=== PATIENT | female | born 2000 | race Caucasian/White ===

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

== ENCOUNTER → 2021-01-03 | Outpatient (CLI) | payer OTHER ==
[2021-01-05 03:11] LABS: CHLAMYDIA TRACHOMATIS, NAA Negative (Negative)
== END ==
LOC: LAB SHORT 08:20 → LAB 08:20
PROVIDERS: Registered Nurse Community Health
DX: Z34.91 Encounter for supervision of normal pregnancy, unspecified, first trimester (principal)
CPT/HCPCS: 87491; 87591

== ENCOUNTER → 2021-02-14 | Outpatient (CLI) | payer OTHER ==
[2021-02-14 13:46] LABS: Hematocrit 33.1 % (33.0-51.0); Hemoglobin 11.4 g/dL (11.5-16.0)
== END ==
LOC: LAB SHORT 09:26 → LAB 09:26
PROVIDERS: Registered Nurse Community Health
DX: Z33.1 Pregnant state, incidental (principal)
CPT/HCPCS: 82950; 85014; 85018

== ENCOUNTER → 2021-04-10 | Outpatient (CLI) | payer OTHER | LOC: LAB SHORT 09:00 | DX: Z34.91 Encounter for supervision of normal pregnancy, unspecified, first trimester (principal) | CPT/HCPCS: 87081; 87150 ==

== ENCOUNTER 2021-04-23 16:15 | Inpatient (IN) | payer OTHER ==
[~2021-04-23] VITALS: Ht 167.6 cm; Wt 86.1 kg
[2021-04-23 17:08] LABS: BASOPHILS ABSOLUTE AUTO 0.03 K/mm3 (0.00-0.23); BASOPHILS PERCENT AUTO 0 % (0-2); EOSINOPHILS ABSOLUTE AUTO 0.13 K/mm3 (0.00-0.68); EOSINOPHILS PERCENT AUTO 1 % (0-6); Hematocrit 34.1 % (33.0-51.0); Hemoglobin 11.8 g/dL (11.5-16.0); IMMATURE GRAN ABSOLUTE AUTO 0.04 K/mm3 (0.00-0.10); IMMATURE GRAN PERCENT AUTO 0 % (0-1); LYMPHOCYTES ABSOLUTE AUTO 1.34 K/mm3 (0.84-5.20); LYMPHOCYTES PERCENT AUTO 12 % (21-46); MONOCYTES ABSOLUTE AUTO 0.71 K/mm3 (0.16-1.47); MONOCYTES PERCENT AUTO 6 % (4-13); Mean Corpuscular HGB 33.1 pg (26.0-34.0); Mean Corpuscular HGB Conc 34.6 g/dL (31.5-36.5); Mean Corpuscular Volume 96 fL (80-100); Mean Platelet Volume 9.3 fL (9.1-12.4); NEUTROPHILS ABSOLUTE AUTO 9.02 K/mm3 (1.96-9.15); NEUTROPHILS PERCENT AUTO 80 % (41-73); Platelet Count 462 K/mm3 (150-400); RDW Coefficient Variation 13.2 % (11.7-14.2); RDW Standard Deviation 46.4 fL (35.1-46.3); Red Blood Cell Count 3.56 M/mm3 (3.80-5.20); White Blood Cell Count 11.27 K/mm3 (4.00-11.30)
[2021-04-23] MEDS ORDERED: PRENATAL TABLE1 EAC2 PO (17:23)
[2021-04-23 17:30] LABS: Influenza A, PCR NEGATIVE (NEGATIVE); Influenza B, PCR NEGATIVE (NEGATIVE); Resp Syncytial Virus, PCR NEGATIVE (NEGATIVE); SARS-Cov-2 (COVID-19) PCR, MMC NEGATIVE (NEGATIVE)
--- NOTE | 2021-04-24 23:43 | NUR ---
Patient walked to the bathroom assisted by nurse & Tech. Patient showered and returned to bed with no issues.
[2021-04-25 05:57] LABS: Hematocrit 33.7 % (33.0-51.0); Hemoglobin 11.5 g/dL (11.5-16.0); Mean Corpuscular HGB Conc 34.1 g/dL (31.5-36.5); Mean Corpuscular Volume 97 fL (80-100); Mean Platelet Volume 9.7 fL (9.1-12.4); Platelet Count 425 K/mm3 (150-400); RDW Coefficient Variation 13.2 % (11.7-14.2); RDW Standard Deviation 47.5 fL (35.1-46.3); Red Blood Cell Count 3.49 M/mm3 (3.80-5.20); White Blood Cell Count 17.59 K/mm3 (4.00-11.30)
--- NOTE | 2021-04-25 08:25 | NUR ---
MORNING MEDS GIVEN, ROBE/SLIPPER SOCKS GIVEN, M[facility]ALK [facility]
--- NOTE | 2021-04-25 10:15 | NUR ---
PT DECLINED TOWELS FOR SHOWERING, OR BED BEING CHANGED
--- NOTE | 2021-04-25 18:39 | NUR ---
PT BACK IN ROOM FROM VISITING BABY IN [facility],
--- NOTE | 2021-04-25 19:15 | NUR ---
rept to PM shift
--- NOTE | 2021-04-25 19:30 | NUR ---
PT REPORTS PAIN 7/10. SHE REPORTS THE PAIN IS IN HER LOWER BACK, CRAMPING, AND IN SUTURE AREA. SHE SAID HER LOWER BACK HURTS IN THE EPIDURAL AREA AND DESCRIBES IT SHE FELT LIKE SHE WAS "PUNCHED" THERE. WE DISCUSSED THAT THIS IS NORMAL. A HEATING PAD WAS STARTED ON HER LOWER BACK AND AN ICE DIAPER FOR HER PERINEAL AREA. SHE WAS ALSO GIVEN TORADOL. FUNDUS WNL. SHE WILL BE REASSESSED.
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
--- NOTE | 2021-04-26 05:00 | NUR ---
PT C/O COUGH THAT HAD JUST STARTED. SHE FELT SOB. PT USED INHALER. AUSCULTATED WHEEZING IN LOWER LEFT LOBE. THIRTY MIN AFTER INHALER ADMINISTRATION, WHEEZING WAS DECREASED AND PT REPORTS NO SOB AND RELIEF OF COUGH.
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
--- NOTE | 2021-04-27 09:20 | NUR ---
PROVIDER HERE TO REVIEW PYSCH EVALUATION FROM LAST NIGHT THAT WAS DONE VIA TELEHEALTH. A COPY OF THE PYSCH EVAL IS IN THE PT'S CHART VIA HARDCOPY. PT WAS IN THE NURSERY VISITING HER WHEN Sarwat POMPA CNM CAME ON THE UNIT, PROVIDER DID NOT WANT TO DISTURB PT'S TIME WITH HER SO SHE STATED THAT WE WILL COME BACK BY LATER TODAY TO SEE HER. PROVIDER REQUESTED THAT WE CALL CHILD SERVICES TODAY AND NOTIFY THEM OF CONCERNS REGARDING PT'S PSYCHOLOGICAL STATE AND HOW IT MAY AFFECT CARING FOR A .
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
[2021-04-28] MEDS ORDERED: IBUP800 PO (12:28)
== END 2021-04-28 13:00 | disposition home or self-care (01) | DRG 807 ==
LOC: OBS 16:15 → BC 16:21 → OBS 16:26 → BC 16:28
PROVIDERS: ADMIT Registered Nurse Community Health
PROC: 10E0XZZ Delivery of Products of Conception, External Approach (ICD-10-PCS; principal; 2021-04-24)
PROC: 10907ZC Drainage of Amniotic Fluid, Therapeutic from Products of Conception, Via Natural or Artificial Opening (ICD-10-PCS; 2021-04-24)
PROC: 0KQM0ZZ Repair Perineum Muscle, Open Approach (ICD-10-PCS; 2021-04-24)
PROC: 3E0R3BZ Introduction of Anesthetic Agent into Spinal Canal, Percutaneous Approach (ICD-10-PCS; 2021-04-24)
PROC: 00HU33Z Insertion of Infusion Device into Spinal Canal, Percutaneous Approach (ICD-10-PCS; 2021-04-24)
PROC: 3E02340 Introduction of Influenza Vaccine into Muscle, Percutaneous Approach (ICD-10-PCS; 2021-04-24)
DX: O36.5930 Maternal care for other known or suspected poor fetal growth, third trimester, not applicable or unspecified (principal); Z37.0 Single live birth; Z3A.38 38 weeks gestation of pregnancy; O70.1 Second degree perineal laceration during delivery; Z20.822 Contact with and (suspected) exposure to COVID-19; O99.52 Diseases of the respiratory system complicating childbirth; J45.909 Unspecified asthma, uncomplicated; O99.344 Other mental disorders complicating childbirth; F41.9 Anxiety disorder, unspecified; Z23 Encounter for immunization
CPT/HCPCS: 0241U; 36415; 51702; 85025; 85027; 86850; 86900; 86901; 90686; A9270; J1885; J2001; J2590; J3010; J7120

== ENCOUNTER 2021-10-05 03:32 | Emergency (ER) | payer OTHER ==
[~2021-10-05] VITALS: Ht 167.6 cm; Wt 79.4 kg
[~2021-10-05 03:32] MED LIST changes: +IBUP800 PO; +PRENATAL TABLE1 EAC2 PO
== END 2021-10-05 07:24 | disposition home or self-care (01) ==
LOC: ER 03:32
DX: U07.1 COVID-19 (principal); E66.9 Obesity, unspecified; F17.210 Nicotine dependence, cigarettes, uncomplicated
CPT/HCPCS: A9270

== ENCOUNTER 2021-11-30 06:02 | Emergency (ER) | payer OTHER ==
[~2021-11-30] VITALS: Ht 167.6 cm; Wt 81.7 kg
[2021-11-30] MEDS ORDERED: IBU800 M1 PO (06:27)
[2021-11-30] MEDS ORDERED: Ventolin/Prove6.7 GM INH (06:27)
[2021-11-30] MEDS ORDERED: CYCL10 PO (08:30)
== END 2021-11-30 08:39 | disposition home or self-care (01) ==
LOC: ER 06:02
DX: M79.18 Myalgia, other site (principal); J45.909 Unspecified asthma, uncomplicated; Z79.899 Other long term (current) drug therapy
CPT/HCPCS: A9270

== ENCOUNTER → 2023-01-16 | Outpatient (CLI) | payer OTHER ==
[~2023-01-16] MED LIST changes: +CYCL10 PO; +IBU800 M1 PO; +Ventolin/Prove6.7 GM INH
[2023-01-18 04:08] LABS: HBSAG SCREEN Negative (Negative); HCV ANTIBODY Non Reactive (Non Reactive)
[2023-01-19 00:08] LABS: HIV AB/P24 AG SCREEN Non Reactive (Non Reactive)
[2023-01-21 00:10] LABS: CHLAMYDIA BY NAA Negative (Negative); GONOCOCCUS BY NAA Negative (Negative); TRICH VAG BY NAA Negative (Negative)
== END ==
LOC: LAB 10:28 → LAB SHORT 10:28
PROVIDERS: Registered Nurse Community Health
DX: Z11.3 Encounter for screening for infections with a predominantly sexual mode of transmission (principal)
CPT/HCPCS: 86592; 86803; 87340; 87389; 87491; 87591; 87661

== ENCOUNTER 2023-03-31 17:33 | Emergency (ER) | payer OTHER ==
[~2023-03-31] VITALS: Ht 167.6 cm; Wt 79.4 kg
[2023-03-31 17:51] VITALS: BP 132/71
== END 2023-03-31 20:13 | disposition home or self-care (01) ==
LOC: ER 17:33
DX: G43.909 Migraine, unspecified, not intractable, without status migrainosus (principal); J45.909 Unspecified asthma, uncomplicated; F17.200 Nicotine dependence, unspecified, uncomplicated; Z79.899 Other long term (current) drug therapy
CPT/HCPCS: 96372; 99283-25; A9270; J1885

== ENCOUNTER → 2023-08-31 | Outpatient (CLI) | payer OTHER ==
[2023-08-31 14:32] LABS: BASOPHILS ABSOLUTE AUTO 0.02 K/mm3 (0.00-0.23); BASOPHILS PERCENT AUTO 0 % (0-2); EOSINOPHILS ABSOLUTE AUTO 0.29 K/mm3 (0.00-0.68); EOSINOPHILS PERCENT AUTO 4 % (0-6); Hematocrit 34.8 % (33.0-51.0); Hemoglobin 11.7 g/dL (11.5-16.0); IMMATURE GRAN ABSOLUTE AUTO 0.01 K/mm3 (0.00-0.10); IMMATURE GRAN PERCENT AUTO 0 % (0-1); LYMPHOCYTES ABSOLUTE AUTO 1.36 K/mm3 (0.84-5.20); LYMPHOCYTES PERCENT AUTO 18 % (21-46); MONOCYTES ABSOLUTE AUTO 0.59 K/mm3 (0.16-1.47); MONOCYTES PERCENT AUTO 8 % (4-13); Mean Corpuscular HGB 33.1 pg (26.0-34.0); Mean Corpuscular HGB Conc 33.6 g/dL (31.5-36.5); Mean Corpuscular Volume 99 fL (80-100); Mean Platelet Volume 9.2 fL (9.1-12.4); NEUTROPHILS ABSOLUTE AUTO 5.36 K/mm3 (1.96-9.15); NEUTROPHILS PERCENT AUTO 70 % (41-73); Platelet Count 485 K/mm3 (150-400); RDW Coefficient Variation 12.9 % (11.7-14.2); RDW Standard Deviation 46.2 fL (35.1-46.3); Red Blood Cell Count 3.53 M/mm3 (3.80-5.20); White Blood Cell Count 7.63 K/mm3 (4.00-11.30)
[2023-09-01 13:11] LABS: HEPATITIS C AB CIA INTERP Negative (Negative); HEPATITIS C ANTIBODY CIA INDEX <0.02 IV
[2023-09-01 16:15] LABS: HIV 1,2 COMBO ANTIGEN/ANTIBODY Negative (Negative)
[2023-09-01 17:58] LABS: HEPATITIS B SURFACE ANTIGEN Negative (Negative)
== END | disposition home or self-care (01) ==
LOC: LAB SHORT 13:16 → LAB 13:16
PROVIDERS: Registered Nurse Community Health
DX: Z34.91 Encounter for supervision of normal pregnancy, unspecified, first trimester (principal)
CPT/HCPCS: 84443; 86803; 87340; 87389

== ENCOUNTER → 2023-09-22 | Outpatient (CLI) | payer OTHER ==
[2023-09-24 06:07] LABS: APTIMA MEDIA TYPE Urine; C. TRACHOMATIS BY TMA Negative (Negative); N. GONORRHOEAE BY TMA Negative (Negative); SPECIMEN SOURCE Urine
== END ==
LOC: LAB 12:41 → LAB SHORT 12:41
PROVIDERS: Registered Nurse Community Health
DX: Z34.91 Encounter for supervision of normal pregnancy, unspecified, first trimester (principal)
CPT/HCPCS: 87491; 87591

== ENCOUNTER → 2024-01-27 | Outpatient (CLI) | payer OTHER ==
[2024-01-27 14:25] LABS: Hematocrit 31.6 % (33.0-51.0)
== END ==
LOC: LAB SHORT 12:59 → LAB 12:59
PROVIDERS: Registered Nurse Community Health
DX: Z34.93 Encounter for supervision of normal pregnancy, unspecified, third trimester (principal)
CPT/HCPCS: 82950; 85014; 85018

== ENCOUNTER → 2024-03-21 | Outpatient (CLI) | payer OTHER ==
[~2024-03-21] MED LIST changes: +1/2 NS 250ml250 ML; +PANT20 PO
== END ==
LOC: LAB 12:12 → LAB SHORT 12:12
DX: Z34.93 Encounter for supervision of normal pregnancy, unspecified, third trimester (principal)
CPT/HCPCS: 87081; 87150

== ENCOUNTER 2024-03-29 07:13 | Inpatient (IN) | payer OTHER ==
[2024-03-29] VITALS (15 sets, daily range): BP systolic 108–141; BP diastolic 57–91
[~2024-03-29] VITALS: Ht 167.6 cm; Wt 98.4 kg
[~2024-03-29 07:13] MED LIST changes: -1/2 NS 250ml250 ML; -PANT20 PO
[2024-03-29] MEDS ORDERED: FentaNYL Citrate 50 MCG/ML 2 ML Injection IV PRN (07:20)
[2024-03-29] MEDS ORDERED: Penicillin G Potassium 5,000,000 UNITS in NS 250 ML IV ONE (07:25)
[2024-03-29] MEDS ORDERED: Lactated Ringer's 1,000 ML IV SCH ×3 (07:25)
[2024-03-29] MEDS ORDERED: Carboprost Tromethamine 250 MCG/ML 1ML Amp IM PRN (07:25)
[2024-03-29] MEDS ORDERED: Tranexamic Acid 100 ML IV SCH (07:25)
[2024-03-29] MEDS ORDERED: Acetaminophen 500 MG Tab PO PRN (07:25)
[2024-03-29] MEDS ORDERED: FentaNYL 2mcg/ml-Bup 0.1% Epd 250 ML EPI PRN (07:25)
[2024-03-29] MEDS ORDERED: Ondansetron HCl 2 MG / ML 2ML Vial IV PRN (07:25)
[2024-03-29] MEDS ORDERED: OXYTOCIN/RINGER'S LACTATE 500 ML IV PRN (07:25)
[2024-03-29] MEDS ORDERED: Methylergonovine Maleate 0.2MG / ML 1ML Amp IM PRN (07:25)
[2024-03-29] MEDS ORDERED: ePHEDrine Sulfate 50 MG/ML 1ML Injection XX PRN (07:25)
[2024-03-29] MEDS ORDERED: Misoprostol 200 MCG Tab BC PRN (07:25)
[2024-03-29] MEDS ORDERED: Misoprostol 200 MCG Tab PR PRN (07:25)
[2024-03-29] MEDS ORDERED: Lactated Ringer's 1,000 ML IV PRN (07:25)
[2024-03-29] MEDS ORDERED: Calcium Carbonate 500 MG Tab Chew PO PRN (07:25)
[2024-03-29] MEDS ORDERED: Oxytocin 10 Unit / ML Vial IM PRN (07:25)
[2024-03-29] MEDS ORDERED: OXYTOCIN/RINGER'S LACTATE 500 ML IV SCH (07:25)
[2024-03-29 08:04] LABS: BASOPHILS ABSOLUTE AUTO 0.03 K/mm3 (0.00-0.23); BASOPHILS PERCENT AUTO 0 % (0-2); EOSINOPHILS ABSOLUTE AUTO 0.16 K/mm3 (0.00-0.68); EOSINOPHILS PERCENT AUTO 1 % (0-6); Hemoglobin 11.3 g/dL (11.5-16.0); IMMATURE GRAN ABSOLUTE AUTO 0.03 K/mm3 (0.00-0.10); IMMATURE GRAN PERCENT AUTO 0 % (0-1); LYMPHOCYTES ABSOLUTE AUTO 1.22 K/mm3 (0.84-5.20); LYMPHOCYTES PERCENT AUTO 11 % (21-46); MONOCYTES ABSOLUTE AUTO 0.55 K/mm3 (0.16-1.47); MONOCYTES PERCENT AUTO 5 % (4-13); Mean Corpuscular HGB 33.2 pg (26.0-34.0); Mean Corpuscular HGB Conc 35.3 g/dL (31.5-36.5); Mean Corpuscular Volume 94 fL (80-100); Mean Platelet Volume 9.9 fL (9.1-12.4); NEUTROPHILS ABSOLUTE AUTO 9.59 K/mm3 (1.96-9.15); NEUTROPHILS PERCENT AUTO 83 % (41-73); Platelet Count 332 K/mm3 (150-400); RDW Coefficient Variation 13.6 % (11.7-14.2); RDW Standard Deviation 46.6 fL (35.1-46.3); White Blood Cell Count 11.58 K/mm3 (4.00-11.30)
[2024-03-29] MEDS ORDERED: 1/2 NS 250ml250 ML (08:09)
[2024-03-29] MEDS ORDERED: PRENATAL TABLE1 EAC2 PO (08:09)
[2024-03-29] MEDS ORDERED: PANT20 PO (08:11)
[2024-03-29] MEDS ORDERED: Penicillin G Potassium 2,500,000 UNITS in Dextrose 5% 100 ML IV SCH (11:30)
[2024-03-30] VITALS (38 sets, daily range): BP systolic 82–176; BP diastolic 54–129
[2024-03-30] MEDS ORDERED: CeFAZolin Sodium 2,000 MG in NS 100 ML IV SCH ×2 (14:35→23:00)
[2024-03-30] MEDS ORDERED: Metoclopramide HCl 5MG / ML 2ML Vial IV ONE (14:35)
[2024-03-30] MEDS ORDERED: Lactated Ringer's 1,000 ML IV SCH ×2 (14:35→16:40)
[2024-03-30] MEDS ORDERED: Azithromycin 500 MG in NS 250 ML IV SCH (14:35)
[2024-03-30] MEDS ORDERED: Citric Acid/Sodium Citrate 30 ML BTL PO ONE (14:40)
[2024-03-30] MEDS ORDERED: Morphine Sulfate/PF 1 MG/ML 10MLVIAL ONE (15:08)
[2024-03-30] MEDS ORDERED: FentaNYL Citrate 50 MCG/ML 2 ML Injection ONE (15:08)
[2024-03-30] MEDS ORDERED: Sodium Bicarb 8.4% 1 MEQ/ML 50 ML Vial ONE (15:08)
[2024-03-30] MEDS ORDERED: Metoclopramide HCl 5MG / ML 2ML Vial ONE (15:18)
[2024-03-30] MEDS ORDERED: Ondansetron HCl 2 MG / ML 2ML Vial ONE (15:18)
[2024-03-30] MEDS ORDERED: Dexamethasone Sod Phos 10 MG/ML 1ML VIAL ONE (15:18)
[2024-03-30] MEDS ORDERED: Lidocaine HCl 2% 10 ML SDA ONE (15:20)
[2024-03-30] MEDS ORDERED: EpiNEPhrine 1 MG/1 ML 1ML Vial ONE (15:24)
[2024-03-30] MEDS ORDERED: Midazolam HCl 1MG / ML 2ML Vial ONE (15:26)
[2024-03-30] MEDS ORDERED: Oxytocin 10 Unit / ML Vial ONE (15:42)
--- NOTE | 2024-03-30 15:45 | NUR ---
03/30/24 1545 Antolin,Greta Madi VIABLE MALE BORN 1529; CORD BLOOD SENT W/MARILU SENIOR; CORD FOR CORD GASES SENT W/RT HÉCTOR; WT 5-1 [id number]; HEAD 12.25 IN; CHEST 11.5 IN; LENGTH 17.75 IN. APGARS 9/9
[2024-03-30 16:15] LABS: PCO2 Cord - Arterial 57.2 mmHg (40-50); PO2 Cord - Arterial 16.8 mmHg (16-20)
[2024-03-30 16:17] LABS: PCO2 Cord - Venous 43.4 mmHg (40-50); PO2 Cord - Venous 16.3 mmHg (28-32); pH Umbilical Cord - Venous 7.32 (7.26-7.35)
[2024-03-30] MEDS ORDERED: Albuterol HFA200 ACT/6.7 GM INH INH PRN (16:30)
[2024-03-30] MEDS ORDERED: Promethazine HCl 25 MG Supp PR PRN (16:35)
[2024-03-30] MEDS ORDERED: Promethazine HCl 12.5 MG Supp PR PRN (16:35)
[2024-03-30] MEDS ORDERED: Methylergonovine Maleate 0.2MG / ML 1ML Amp IM PRN (16:35)
[2024-03-30] MEDS ORDERED: Acetaminophen 500 MG Tab PO PRN (16:35)
[2024-03-30] MEDS ORDERED: Promethazine HCl 25 MG Tab PO PRN (16:35)
[2024-03-30] MEDS ORDERED: Ondansetron HCl 2 MG / ML 2ML Vial IV PRN (16:40)
[2024-03-30] MEDS ORDERED: Simethicone 80 MG Chew PO PRN (16:40)
[2024-03-30] MEDS ORDERED: OxyCODONE 5 mg/Acetamin 325 mg TABLET PO PRN (16:40)
[2024-03-30] MEDS ORDERED: Magnesium Hydroxide Conc 10 ML UDC PO PRN (16:40)
[2024-03-30] MEDS ORDERED: OXYTOCIN/RINGER'S LACTATE 500 ML IV SCH (16:40)
[2024-03-30] MEDS ORDERED: Lanolin Cream TOP PRN (16:45)
[2024-03-30] MEDS ORDERED: Morphine Sulfate 4 MG/1 ML Injection IV PRN (16:45)
[2024-03-30] MEDS ORDERED: Nicotine 7 MG PATCH TOP SCH (16:54)
[2024-03-30] MEDS ORDERED: Ketorolac Tromethamine 30mg Vial IV SCH (17:00)
[2024-03-30] MEDS ORDERED: Ipratropium/Albuterol SulF 2.5-0.5MG/3 ML Amp INH PRN (17:00)
--- NOTE | 2024-03-30 17:05 | NUR ---
RT IN PACU FOR UPDRAFT, PT WHEEZING AND SOB SINCE OUT OF OR. HAVING SOME ANXIETY R/T BREATHING.
[2024-03-30] MEDS ORDERED: Misoprostol 200 MCG Tab BC ONE (17:10)
[2024-03-30] MEDS ORDERED: Docusate Sodium 100 MG Cap PO SCH (21:00)
[2024-03-31 04:09] VITALS: BP 125/75
[2024-03-31] MEDS ORDERED: Pantoprazole Sodium 20 MG Tab PO SCH (06:00)
[2024-03-31 06:21] LABS: BASOPHILS ABSOLUTE AUTO 0.02 K/mm3 (0.00-0.23); BASOPHILS PERCENT AUTO 0 % (0-2); EOSINOPHILS PERCENT AUTO 0 % (0-6); Hematocrit 31.8 % (33.0-51.0); IMMATURE GRAN ABSOLUTE AUTO 0.09 K/mm3 (0.00-0.10); IMMATURE GRAN PERCENT AUTO 1 % (0-1); LYMPHOCYTES ABSOLUTE AUTO 1.04 K/mm3 (0.84-5.20); LYMPHOCYTES PERCENT AUTO 7 % (21-46); MONOCYTES ABSOLUTE AUTO 0.67 K/mm3 (0.16-1.47); MONOCYTES PERCENT AUTO 5 % (4-13); Mean Corpuscular HGB 33.1 pg (26.0-34.0); Mean Corpuscular HGB Conc 34.6 g/dL (31.5-36.5); Mean Corpuscular Volume 96 fL (80-100); Mean Platelet Volume 9.4 fL (9.1-12.4); NEUTROPHILS ABSOLUTE AUTO 12.34 K/mm3 (1.96-9.15); NEUTROPHILS PERCENT AUTO 87 % (41-73); Platelet Count 367 K/mm3 (150-400); RDW Coefficient Variation 13.3 % (11.7-14.2); RDW Standard Deviation 47.2 fL (35.1-46.3); Red Blood Cell Count 3.32 M/mm3 (3.80-5.20); White Blood Cell Count 14.16 K/mm3 (4.00-11.30)
[2024-03-31 07:39] VITALS: BP 138/74
[2024-03-31] MEDS ORDERED: Ibuprofen 400 MG Tab PO SCH (08:00)
[2024-03-31] MEDS ORDERED: Prenatal Vit/FE Fumarate/FA 1 Tab PO SCH (09:00)
[2024-03-31 13:03] VITALS: BP 146/67
[2024-03-31 16:21] VITALS: BP 133/71
[2024-03-31 19:36] VITALS: BP 135/78
[2024-03-31] MEDS ORDERED: OxyCODONE HCL 5 MG TAB PO PRN (21:10)
[2024-04-01 00:29] VITALS: BP 124/83
[2024-04-01 04:22] VITALS: BP 135/73
[2024-04-01 08:07] VITALS: BP 141/87
[2024-04-01] MEDS ORDERED: IBUP800 PO (10:39)
[2024-04-01 10:59] VITALS: BP 142/81
== END 2024-04-01 11:35 | disposition home or self-care (01) | DRG 788 ==
LOC: OBS 07:13 → BC 07:16 → OBS 07:37 → BC 07:38
PROVIDERS: Obstetrics & Gynecology; ADMIT Registered Nurse Community Health
PROC: 10D00Z1 Extraction of Products of Conception, Low, Open Approach (ICD-10-PCS; principal; 2024-03-29)
PROC: 3E033VJ Introduction of Other Hormone into Peripheral Vein, Percutaneous Approach (ICD-10-PCS; 2024-03-29)
DX: O36.5930 Maternal care for other known or suspected poor fetal growth, third trimester, not applicable or unspecified (principal); Z3A.37 37 weeks gestation of pregnancy; Z37.0 Single live birth; O99.52 Diseases of the respiratory system complicating childbirth; J45.909 Unspecified asthma, uncomplicated; O76 Abnormality in fetal heart rate and rhythm complicating labor and delivery; O62.1 Secondary uterine inertia; O69.81X0 Labor and delivery complicated by cord around neck, without compression, not applicable or unspecified
CPT/HCPCS: 36415; 51702; 82803; 85025; 86850; 86900; 86901; 86923; 94640; 94664; A9270; J0171; J0690; J1100; J1885; J2003; J2250; J2274; J2405; J2470; J2540; J2590; J2765; J3010; J7050; J7120

== ENCOUNTER 2024-09-14 07:03 | Emergency (ER) | payer OTHER ==
[~2024-09-14] VITALS: Ht 167.6 cm; Wt 108.9 kg
[~2024-09-14 07:03] MED LIST changes: +1/2 NS 250ml250 ML; +PANT20 PO
[2024-09-14 07:50] VITALS: BP 186/108
[2024-09-14] MEDS ORDERED: Ondansetron 4 MG SoluTab SL ONE (08:20)
[2024-09-14] MEDS ORDERED: Ketorolac Tromethamine 30mg Vial IV ONE (08:20)
[2024-09-14 09:18] LABS: BASOPHILS ABSOLUTE AUTO 0.02 K/mm3 (0.00-0.23); BASOPHILS PERCENT AUTO 0 % (0-2); EOSINOPHILS ABSOLUTE AUTO 0.03 K/mm3 (0.00-0.68); EOSINOPHILS PERCENT AUTO 0 % (0-6); Hematocrit 38.3 % (33.0-51.0); Hemoglobin 13.0 g/dL (11.5-16.0); IMMATURE GRAN ABSOLUTE AUTO 0.02 K/mm3 (0.00-0.10); IMMATURE GRAN PERCENT AUTO 0 % (0-1); LYMPHOCYTES ABSOLUTE AUTO 0.72 K/mm3 (0.84-5.20); LYMPHOCYTES PERCENT AUTO 10 % (21-46); MONOCYTES ABSOLUTE AUTO 0.32 K/mm3 (0.16-1.47); MONOCYTES PERCENT AUTO 4 % (4-13); Mean Corpuscular HGB Conc 33.9 g/dL (31.5-36.5); Mean Corpuscular Volume 96 fL (80-100); NEUTROPHILS ABSOLUTE AUTO 6.41 K/mm3 (1.96-9.15); NEUTROPHILS PERCENT AUTO 85 % (41-73); NRBC ABSOLUTE 0.00 K/mm3 (0.00-0.02); NRBC Auto 0.0 /100 WBC (0.0-0.2); Platelet Count 478 K/mm3 (150-400); RDW Coefficient Variation 12.4 % (11.7-14.2); RDW Standard Deviation 43.0 fL (35.1-46.3)
[2024-09-14 09:31] LABS: Alanine Aminotransfer (ALT/SGP 18.0 U/L (12-78); Albumin, Blood 3.3 g/dL (3.4-5.0); Albumin/Globulin Ratio 0.8 (0.8-1.8); Anion Gap 8.0 mmol/L (3-11); Aspartate Aminotrans (AST/SGOT 14.0 U/L (12-37); Bilirubin, Total 0.3 mg/dL (0.1-1.0); Blood Urea Nitrogen 14.0 mg/dL (8-24); CO2, Blood 26.0 mmol/L (21-32); Calcium, Blood 8.5 mg/dL (8.5-10.1); Chloride, Blood 105.0 mmol/L (98-108); Creatinine, Blood 0.57 mg/dL (0.40-1.00); Globulin, Blood 4.2 g/dL (2.2-4.0); Glucose, Blood 97.0 mg/dL (70-99); Potassium, Blood 3.5 mmol/L (3.5-5.5); Sodium, Blood 135.0 mmol/L (136-145); Total Protein, Blood 7.5 g/dL (6.4-8.2)
[2024-09-14] MEDS ORDERED: ONDA4 PO (09:58)
== END 2024-09-14 10:31 | disposition home or self-care (01) ==
LOC: ER 07:03
PROVIDERS: Emergency Medicine
DX: R51.9 Headache, unspecified (principal); R11.2 Nausea with vomiting, unspecified; J45.909 Unspecified asthma, uncomplicated; F17.200 Nicotine dependence, unspecified, uncomplicated; Z79.1 Long term (current) use of non-steroidal anti-inflammatories (NSAID); Z79.899 Other long term (current) drug therapy
CPT/HCPCS: 80053; 85025; 96360; 99283-25; A9270; J1885; J7120